=== PATIENT | female | born 1995 | race Caucasian/White ===

== ENCOUNTER 2018-01-29 20:06 | Emergency (ER) | payer SELFPAY ==
[2018-01-29 20:31] VITALS: BP 125/74
--- NOTE | 2018-01-29 20:56 | UC ---
Complaint Female HPI - HPI Summary HPI Summary: 23 yo female presents with burning with urination and bladder pressure for the last 2-3 hours. She tells me that she has a long history of UTIs and this feels the same. Says that when she gets UTIs they will feel like this and then within the next day she will have severe pain and hematuria. She denies fever, chills, abdominal pain, n/v, flank pain, vaginal bleeding or discharge. - History Of Current Complaint Chief Complaint: UCGU Stated Complaint: POSS UTI Time Seen by Provider: 01/29/18 20:55 Hx Obtained From: Patient Hx Last Menstrual Period: IUD Onset/Duration: Sudden Onset Timing: Constant Severity Initially: Mild Severity Currently: Mild Pain Intensity: 3 Pain Scale Used: 0-10 Numeric - Allergies/Home Medications Allergies/Adverse Reactions: Allergies Allergy/AdvReac Type Severity Reaction Status Date / Time No Known Allergies Allergy Verified 01/29/18 20:30 Home Medications: Home Medications Cranberry Conc/C/Bacill Coag [Cranberry Tablet] 1 each PO 01/29/18 [History] Iud* 01/29/18 [History] Multivitamin [Multivitamins] 1 each PO 01/29/18 [History] buPROPion TAB* [Wellbutrin TAB*] 450 mg PO DAILY 01/29/18 [History Confirmed ] PMH/Surg Hx/FS Hx/Imm Hx Psychological History: Anxiety, Depression - Surgical History Surgical History: Yes Surgery Procedure, Year, and Place: RT CHOLESTEATOMA SURGERY, T&A, EAR TUBES X2 - Family History Known Family History: Positive: None - Social History Occupation: Employed Full-time Lives: With Family Alcohol Use: Occasionally Substance Use Type: None Smoking Status (MU): Never Smoked Tobacco Review of Systems All Other Systems Reviewed And Are Negative: Yes Constitutional: Positive: Negative Skin: Positive: Negative Respiratory: Positive: Negative Cardiovascular: Positive: Negative Gastrointestinal: Positive: Negative Genitourinary: Positive: Dysuria Neurological: Positive: Negative Psychological: Positive: Negative Physical Exam - Summary Physical Exam Summary: GENERAL: NAD. WDWN. No pain distress. SKIN: No rashes, sores, lesions, or open wounds. NECK: Supple. Nontender. No lymphadenopathy. CHEST: CTAB. No r/r/w. No accessory muscle use. Breathing comfortably and in no distress. CV: RRR. Without m/r/g. Pulses intact. Cap refill <2seconds ABDOMEN: Soft. NTTP. No CVA tenderness. Bowel sounds present NEURO: Alert. PSYCH: Age appropriate behavior. Triage Information Reviewed: Yes Vital Signs: Initial Vital Signs Temp 97.3 F 01/29/18 20:27 Pulse 95 01/29/18 20:27 Resp 16 01/29/18 20:27 BP 125/74 01/29/18 20:27 Pulse Ox 98 01/29/18 20:27 Laboratory Tests 01/29/18 20:50 POC Urine Color Light yellow POC Urine Clarity Clear POC Urine pH 7.0 POC Ur Specif [place] <= 1.005 L POC Urine Protein Negative POC Ur Glucose (UA) Negative POC Urine Ketones Negative POC Urine Blood Negative POC Urine Nitrite Negative POC Urine Bilirubin Negative POC Urine Urobilinogen 0.2 POC U Leukocyte Esteras Negative Vital Signs Reviewed: Yes Complaint Female Dx - Course Course Of Treatment: No sign of infection on UA, however given pt's history of chronic UTIs I discussed with her calling in a prescription and waiting another day or two to see if her symptoms improve - if not, to start taking the anbx. Pt was agreeable to this. Rx for Bactrim. - Differential Dx/Diagnosis Provider Diagnosis: Dysuria Discharge - Sign-Out/Discharge Documenting (check all that apply): Patient Departure All imaging exams completed and their final reports reviewed: No Studies - Discharge Plan Condition: Stable Disposition: HOME Prescriptions: Sulfamethox/Trimethoprim DS* [Bactrim DS 800/160 TAB*] 1 tab PO BID #10 tab Patient Education Materials: Dysuria (ED) Referrals: Vlad Beltran MD [Primary Care Provider] - Additional Instructions: If you develop a fever, shortness of breath, chest pain, new or worsening symptoms - please call your PCP or go to the ED. - Billing Disposition and Condition Condition: STABLE Disposition: Home
== END 2018-01-29 21:00 | disposition home or self-care (01) ==
LOC: UCEAST 20:06
DX: R30.0 Dysuria (principal)
CPT/HCPCS: 81003; 99212; G0463